=== PATIENT | female | born 1955 | race Caucasian/White ===

== ENCOUNTER 2023-02-03 17:03 | Inpatient (IN) | payer OTHER ==
[~2023-02-03] VITALS: Ht 165.1 cm; Wt 118.2 kg
[2023-02-03 17:05] VITALS: BP_SYST 159; PULSE 89; RESP 19; TEMP 97.4; O2SAT 98
[2023-02-03] MEDS ORDERED: NACL 0.9% 1,000 ML IV ONE (19:30)
[2023-02-03] MEDS ORDERED: METOCLOPRAMIDE HCL 10 MG/2 ML VIAL IVP ONE (19:30)
[2023-02-03] MEDS ORDERED: MECLIZINE HCL 25 MG TABLET (ANITVERT) PO ONE (19:30)
[2023-02-03 20:13] LABS: BASOPHILS % (AUTO) 0.4 % (0.0-2.0); EOSINOPHILS % (AUTO) 0.1 % (0.0-4.0); HEMATOCRIT 41.7 % (36-48); HEMOGLOBIN 13.7 g/dL (12.0-16.0); LYMPHOCYTES # (AUTO) 1.7 K/uL (1.0-5.5); LYMPHOCYTES % (AUTO) 16.3 % (20.5-51.5); MEAN CORPUSCULAR HEMOGLOBIN 27 pg (27-31); MEAN CORPUSCULAR HGB CONC 33 % (32-36); MEAN CORPUSCULAR VOLUME 81 fL (79.0-98.0); MONOCYTES # (AUTO) 0.4 K/uL (0.0-1.0); MONOCYTES % (AUTO) 3.6 % (1.7-9.3); NEUTROPHILS # (AUTO) 8.1 K/uL (1.8-7.7); NEUTROPHILS % (AUTO) 79.6 % (40.0-70.0); PLATELET COUNT (AUTO) 260 K/uL (130-430); RED BLOOD CELL COUNT(AUTO) 5.15 MIL/uL (4.2-6.2); RED CELL DISTRIBUTION WIDTH 15.8 % (9.0-15.0); WHITE BLOOD COUNT (AUTO) 10.2 K/uL (4.8-10.8)
[2023-02-03 20:37] LABS: ANION GAP 11 (5-15); CALCIUM 10.7 mg/dL (8.4-11.0); CARBON DIOXIDE 30 mmol/L (23-29); CHLORIDE 98 mmol/L (98-107); CREATININE 0.79 mg/dL (0.55-1.30); GFR AFRICAN AMERICAN 94 mL/min (>90); GLUCOSE 214 mg/dL (74-106); POTASSIUM 4.3 mmol/L (3.5-5.1); SODIUM SERUM 139 mmol/L (136-145); UREA NITROGEN, BLOOD 11 mg/dL (8-21)
[2023-02-03] MEDS ORDERED: LORazepam 2 MG/ML VIAL IVP ONE (20:45)
[2023-02-03 20:56] LABS: GFR NON AFRICAN-AMERICAN 77 mL/min (>90)
[2023-02-03] MEDS ORDERED: MECLIZINE HCL 25 MG TABLET (ANITVERT) PO PRN (22:00)
[2023-02-03] MEDS ORDERED: D5/0.45 NS 1,000 ML IV ONE (22:00)
[2023-02-03] MEDS ORDERED: ONDANSETRON HCL 4 MG/2 ML VIAL IVP PRN (22:00)
[2023-02-03] MEDS ORDERED: SIMV-343 PO (22:38)
[2023-02-03] MEDS ORDERED: LOSA-412 PO (22:38)
[2023-02-03] MEDS ORDERED: SEMA0.258 (22:38)
[2023-02-03] MEDS ORDERED: ESCI10TA PO (22:38)
[2023-02-03] MEDS ORDERED: VITD400 PO (22:38)
[2023-02-03] MEDS ORDERED: INSU100V9 SQ (22:38)
[2023-02-03] MEDS ORDERED: METF-379 PO (22:38)
[2023-02-03] MEDS ORDERED: OMEP40CA20 PO (22:38)
[2023-02-03 23:20] VITALS: BP_SYST 169; PULSE 97; RESP 18; TEMP 97.6
[2023-02-04] VITALS: BP_SYST 169; PULSE 97; RESP 18; TEMP 97.6; O2SAT 94
[2023-02-04] MEDS ORDERED: HYDROcodone/ACETAMIN 5-325 MG TAB (NORCO/ VICODIN) PO PRN ×4 (07:00→11:15)
[2023-02-04] MEDS ORDERED: NALOXONE HCL 0.4 MG/ML AMP (NARCAN) IVP PRN ×3 (07:00→11:00)
[2023-02-04 08:00] VITALS: BP_SYST 146; PULSE 82; RESP 18; TEMP 98.1; O2SAT 98
[2023-02-04] MEDS ORDERED: MECLIZINE HCL 25 MG TABLET (ANITVERT) PO SCH (09:00)
[2023-02-04] MEDS ORDERED: MECL-292 PO (10:58)
[2023-02-04] MEDS ORDERED: ESCITALOPRAM OXALATE 10 MG TABLET PO SCH (11:00)
[2023-02-04] MEDS ORDERED: INSULIN REGULAR, HUMAN 100 UNITS/ML, 3 ML VIAL (humuLIN R) SUBCUT PRN (11:00)
[2023-02-04] MEDS ORDERED: ONDANSETRON HCL 4 MG/2 ML VIAL IVP PRN (11:00)
[2023-02-04] MEDS ORDERED: LORazepam 2 MG/ML VIAL IVP PRN (11:00)
[2023-02-04] MEDS ORDERED: ACETAMINOPHEN 325 MG TABLET PO PRN ×2 (11:00→11:15)
[2023-02-04] MEDS ORDERED: SEMAGLUTIDE 2.5 MG SCH (11:00)
[2023-02-04] MEDS ORDERED: CHOLECALCIFEROL (VITAMIN D-3) 400 UNIT TABLET PO ONE (11:30)
[2023-02-04] MEDS ORDERED: DEXTROSE 50%-WATER 50 ML DISP.SYRIN IVP PRN (11:30)
[2023-02-04] MEDS ORDERED: GLUCOSE (DEXTROSE) ORAL GEL -Adults PO PRN (11:30)
[2023-02-04] MEDS ORDERED: D5W 1,000 ML IV PRN (11:30)
[2023-02-04] MEDS ORDERED: INSULIN GLARGINE 100 UNITS/ML, 10 ML VIAL SQ ONE (11:30)
[2023-02-04] MEDS ORDERED: LOSARTAN POTASSIUM 25 MG TABLET PO ONE (11:30)
[2023-02-04] MEDS ORDERED: SIMVASTATIN 20 MG TABLET PO ONE (11:45)
[2023-02-04] MEDS ORDERED: CITALOPRAM HYDROBROMIDE 20 MG TABLET PO ONE (11:45)
[2023-02-04 16:45] VITALS: BP_SYST 126; PULSE 83; RESP 18; TEMP 96.5; O2SAT 97
[2023-02-04] MEDS ORDERED: metFORMIN HCL 500 MG TABLET PO SCH (21:00)
[2023-02-05] MEDS ORDERED: CITALOPRAM HYDROBROMIDE 20 MG TABLET PO SCH (09:00)
[2023-02-05] MEDS ORDERED: INSULIN GLARGINE 100 UNITS/ML, 10 ML VIAL SQ SCH (09:00)
[2023-02-05] MEDS ORDERED: LOSARTAN POTASSIUM 25 MG TABLET PO SCH (09:00)
[2023-02-05] MEDS ORDERED: CHOLECALCIFEROL (VITAMIN D-3) 400 UNIT TABLET PO SCH (09:00)
[2023-02-05] MEDS ORDERED: SIMVASTATIN 20 MG TABLET PO SCH (09:00)
== END 2023-02-04 17:19 | disposition home or self-care (01) | DRG 392 ==
LOC: SED 17:03 → SMU 21:53
PROVIDERS: ADMIT Preventive Medicine Preventive Medicine/Occupational Environmental Medicine; ATTEND Preventive Medicine Preventive Medicine/Occupational Environmental Medicine
DX: R11.2 Nausea with vomiting, unspecified (principal); Z68.41 Body mass index [BMI] 40.0-44.9, adult; R42 Dizziness and giddiness; I10 Essential (primary) hypertension; E11.9 Type 2 diabetes mellitus without complications; Z88.0 Allergy status to penicillin; Z88.8 Allergy status to other drugs, medicaments and biological substances; Z91.041 Radiographic dye allergy status; Z79.899 Other long term (current) drug therapy; E66.01 Morbid (severe) obesity due to excess calories
CPT/HCPCS: 36415; 70450-TC; 71045; 76376; 80048; 82962; 84484; 85025; 93005; 96361; 96374; 99285; J1815; J2765; J8597